=== PATIENT | male | born 1985 | race African-American/Black ===

== ENCOUNTER 2023-11-27 14:17 | Emergency (ER) | payer SELFPAY ==
[2023-11-27] MEDS ORDERED: Ibuprofen 800 MG TAB ONE (15:03)
[2023-11-27 15:33] LABS: Clarity Clear (Clear); Leukocyte Negative (Negative); Nitrite Negative (Negative); Specific Gravity, Urine 1.025 (1.005-1.030); pH, Urine 6.5 (5.0-9.0)
[2023-11-27 15:34] LABS: Bilirubin Negative (Negative); Blood, Urine Trace (Negative); Glucose, Urine (Dipstick) Negative (Negative); Ketone, Urine Negative (Negative); Protein, Urine (Dipstick) Negative (Neg-Trace); Squamous Epithelial 0-3 HPF (0-3)
[2023-11-27 15:35] LABS: Urine Culture Reflex No No
[2023-11-27] MEDS ORDERED: HYDROcodone/Acetaminophen 10/325 mg Tablet ONE ×2 (17:03→17:06)
== END 2023-11-27 17:25 | disposition home or self-care (01) ==
LOC: NAV ERS 14:17
DX: S29.012A Strain of muscle and tendon of back wall of thorax, initial encounter (principal); R10.9 Unspecified abdominal pain; F17.210 Nicotine dependence, cigarettes, uncomplicated; X58.XXXA Exposure to other specified factors, initial encounter
CPT/HCPCS: 74176; 81001

== ENCOUNTER 2025-02-22 19:44 | Emergency (ER) | payer BC, SELFPAY | END 2025-02-22 21:10 | disposition home or self-care (01) | LOC: NAV ERS 19:44 | DX: A05.9 Bacterial foodborne intoxication, unspecified (principal); K52.9 Noninfective gastroenteritis and colitis, unspecified; Z75.3 Unavailability and inaccessibility of health-care facilities; Z87.891 Personal history of nicotine dependence | CPT/HCPCS: 99283; Q0162 ==